=== PATIENT | female | born 1965 | race Caucasian/White ===

== ENCOUNTER 2018-05-09 11:29 | Emergency (ER) | payer SELFPAY ==
[2018-05-09] MEDS ORDERED: HYDROcodone/Acetaminophen 5/325 mg Tablet ONE (12:08)
--- NOTE | 2018-05-09 12:43 | RAD ---
TWO VIEWS CHEST: History: Fall. Left sided chest pain. FINDINGS: PA and lateral views obtained. The lungs are well aerated. No evidence of active intrathoracic diseas e seen. No evidence of effusions, pneumonia, or pneumothorax seen. IMPRESSION: Unremarkable two views chest. POS: [facility]
== END 2018-05-09 12:35 | disposition home or self-care (01) ==
LOC: MADERS 11:29
DX: S22.31XA Fracture of one rib, right side, initial encounter for closed fracture (principal); F17.210 Nicotine dependence, cigarettes, uncomplicated; I10 Essential (primary) hypertension; W19.XXXA Unspecified fall, initial encounter
CPT/HCPCS: 71046

== ENCOUNTER 2018-07-05 21:41 | Emergency (ER) | payer SELFPAY ==
[2018-07-05] MEDS ORDERED: Penicillin V Potassium 250 MG TAB ONE (22:07)
[2018-07-05] MEDS ORDERED: Promethazine HCl 25 MG/ML VIAL ONE (22:08)
[2018-07-05] MEDS ORDERED: Ketorolac Tromethamine 60 MG/2 ML VIAL ONE (22:08)
== END 2018-07-05 23:05 | disposition home or self-care (01) ==
LOC: MADERS 21:41
DX: K02.9 Dental caries, unspecified (principal); R51 Headache; R11.2 Nausea with vomiting, unspecified; I10 Essential (primary) hypertension; F17.210 Nicotine dependence, cigarettes, uncomplicated; Z71.6 Tobacco abuse counseling
CPT/HCPCS: 96372; 99406; J1885; J2550